=== PATIENT | male | born 1980 | race Two or more races ===

== ENCOUNTER 2017-02-16 16:16 | Emergency (ER) | payer BC ==
[~2017-02-16] VITALS: Ht 190.5 cm; Wt 104.3 kg
[2017-02-16 17:00] VITALS: BP 108/69
[2017-02-16 17:14] LABS: BASOPHILS % (AUTO) 0.5 % (0.0-2.0); EOSINOPHILS % (AUTO) 0.9 % (0.0-3.0); LYMPHOCYTES % (AUTO) 23.5 % (20.0-45.0); MEAN CORPUSCULAR HEMOGLOBIN 29.9 PG (27.0-31.0); MEAN CORPUSCULAR HGB CONC 34.2 G/DL (32.0-36.0); MEAN CORPUSCULAR VOLUME 88 FL (80-99); MEAN PLATELET VOLUME 7.7 FL (6.5-10.1); MONOCYTES % (AUTO) 5.6 % (1.0-10.0); NEUTROPHILS % (AUTO) 69.4 % (45.0-75.0); PLATELET COUNT 182 K/UL (150-450); RED BLOOD COUNT 5.45 M/UL (4.70-6.10); RED CELL DISTRIBUTION WIDTH 11.1 % (11.6-14.8); WHITE BLOOD COUNT 6.6 K/UL (4.8-10.8)
--- NOTE | 2017-02-16 17:20 | Diagnostic Imaging Report ---
Indication: PAIN Technique: One view of the chest Comparison: none Findings: Lungs and pleural spaces are clear. Heart size is normal. Impression: No acute process
[2017-02-16 17:27] LABS: ANION GAP 10 mmol/L (5-15); CALCIUM 8.8 MG/DL (8.5-10.1); CARBON DIOXIDE 28 MMOL/L (21-32); CHLORIDE 103 MMOL/L (98-107); CREATININE 1.1 MG/DL (0.55-1.30); GLOMERULAR FILTRATION RATE > 60 mL/min (>60); POTASSIUM 3.9 MMOL/L (3.5-5.1); SODIUM 141 MMOL/L (136-145)
[2017-02-16 17:41] LABS: ALANINE AMINOTRANSFERASE 43 U/L (12-78); ALBUMIN/GLOBULIN RATIO 1.3 (1.0-2.7); ASPARTATE AMINO TRANSFERASE 28 U/L (15-37); TOTAL PROTEIN 7.5 G/DL (6.4-8.2)
[2017-02-16 18:00] LABS: CRP QUANT < 0.4 mg/dL (0.00-0.90)
--- NOTE | 2017-02-16 18:43 | Emergency Room Report ---
History of Present Illness General Chief Complaint: Chest Pain Source: Patient (CHAI AGUERO) Present Illness HPI 37 y/o male c/o chest pain x 3 days. States he's had this pain for 1 year on and off and states it feels like its under his chest / ribs on the left side assoc w/ a mass. States he had an MRI of this mass on his chest 1 year ago which was negative. States that he told his PCP about his chest pain which is worse when he moves his neck to the left and feels like its reproducible but unable to palpate and reproduce it, only with movements. States he has no cardiac hx and denies any FH of heart attack or sudden before age 50. Denies taking medication for sxs. States PCP is asking we run EKG and cardiac enzymes as presented on a script from Dr. Kaleb Sanchez DO. Patient denies any SOB, ENRIQUE, rash, headache, blurred vision, left arm pain, jaw pain, nausea, ALOC , GERD, abd pain, back pain, or heart palpitations. (CHAI AGUERO) Allergies: Coded Allergies: No Known Allergies (Unverified , 02/16/17) Patient History Past Medical History: see triage record Past Surgical History: none Pertinent Family History: none Immunizations: UTD Reviewed Nursing Documentation: PMH: Agreed, PSxH: Agreed (CHAI AGUERO) Nursing Documentation-PMH Past Medical History: No Stated History (CHAI AGUERO.Latoya) Review of Systems All Other Systems: negative except mentioned in HPI (CHAI AGUERO) Physical Exam Vital Signs Date Time Temp Pulse Resp B/P (MAP) Pulse Ox O2 Delivery O2 Flow Rate FiO2 02/16/17 16:19 97.7 66 18 115/69 99 Room Air Sp02 EP Interpretation: reviewed, normal General Appearance: well appearing, no apparent distress, alert, GCS 15, non- toxic Head: normocephalic, atraumatic Eyes: bilateral eye normal inspection, bilateral eye PERRL ENT: hearing grossly normal, normal pharynx, no angioedema, normal voice Neck: full range of motion, supple/symm/no masses Respiratory: chest non-tender, lungs clear, normal breath sounds, speaking full sentences Cardiovascular #1: regular rate, rhythm, no edema, normal capillary refill Gastrointestinal: non tender, soft Musculoskeletal: back normal, gait/station normal, normal range of motion, non- tender, calf tenderness Neurologic: alert, oriented x3, responsive, motor strength/tone normal, sensory intact, speech normal Psychiatric: judgement/insight normal, memory normal, mood/affect normal, no suicidal/homicidal ideation Skin: normal color, no rash, warm/dry, well hydrated, other - 2cm soft mass LSB 4th ICS region Lymphatic: no adenopathy (CHAI AGUERO P.AOsvaldo) Medical Decision Making PA Attestation Dr. Pierre is my supervising physician with whom patient management has been discussed with. (CHAI AGUERO PLeonor) Diagnostic Impression: Primary Impression: Chest pain Qualified Codes: R07.82 - Intercostal pain ER Course Pt. presents to the ED c/o chest pain x 3 days Ddx considered but are not limited to MA, unstable angina, ACS, aortic dissection, costochondritis, PE, endocarditis Vital signs: are WNL, pt. is afebrile H&PE are most consistent with costochondritis ORDERS / ED INTERVENTIONS: My Orders - CHAI AGUERO P.AOsvaldo Procedure Category Date Status Time Vital Signs CARE 02/16/17 Transmitted 16:43 Ekg Tracing Only CARD 02/16/17 Logged 16:43 Cardiac Monitoring CARE 02/16/17 Transmitted 16:43 Oxygen (Er Only) CARE 02/16/17 Transmitted 16:43 Ed Pulse Oximetry CARE 02/16/17 Transmitted 16:43 Iv Access / Saline CARE 02/16/17 Transmitted Lock 16:43 Activity / Weight CARE 02/16/17 Transmitted Bearing 16:43 Cbc W/ Differential LAB 02/16/17 Complete 16:43 CK MB LAB 02/16/17 Complete 16:43 CK LAB 02/16/17 Complete 16:43 CMP LAB 02/16/17 Complete 16:43 Troponin I LAB 02/16/17 Complete 16:43 C-Reactive Protein LAB 02/16/17 Complete 16:43 D-Dimer LAB 02/16/17 Complete 16:43 Xray Chest 1v RAD 02/16/17 Resulted 16:43 Rhythm Strip CARE 02/16/17 Transmitted 16:43 Saline 10ml Flush PHA 02/16/17 Complete (Saline 10ml Flush) 16:45 DISCHARGE: At this time pt. is stable for d/c to home. Will provide printed patient care instructions, and any necessary prescriptions. Care plan and follow up instructions have been discussed with the patient prior to discharge. Laboratory Tests Test 02/16/17 16:35 White Blood Count 6.6 K/UL (4.8-10.8) Red Blood Count 5.45 M/UL (4.70-6.10) Hemoglobin 16.3 G/DL (14.2-18.0) Hematocrit 47.7 % (42.0-52.0) Mean Corpuscular Volume 88 FL (80-99) Mean Corpuscular Hemoglobin 29.9 PG (27.0-31.0) Mean Corpuscular Hemoglobin Concent 34.2 G/DL (32.0-36.0) Red Cell Distribution Width 11.1 % (11.6-14.8) L Platelet Count 182 K/UL (150-450) Mean Platelet Volume 7.7 FL (6.5-10.1) Neutrophils (%) (Auto) 69.4 % (45.0-75.0) Lymphocytes (%) (Auto) 23.5 % (20.0-45.0) Monocytes (%) (Auto) 5.6 % (1.0-10.0) Eosinophils (%) (Auto) 0.9 % (0.0-3.0) Basophils (%) (Auto) 0.5 % (0.0-2.0) D-Dimer 0.19 mg/L FEU (0.00-0.49) Sodium Level 141 MMOL/L (136-145) Potassium Level 3.9 MMOL/L (3.5-5.1) Chloride Level 103 MMOL/L (98-107) Carbon Dioxide Level 28 MMOL/L (21-32) Anion Gap 10 mmol/L (5-15) Blood Urea Nitrogen 15 mg/dL (7-18) Creatinine 1.1 MG/DL (0.55-1.30) Estimate Glomerular Filtration Rate > 60 mL/min (>60) Glucose Level 101 MG/DL (74-106) Calcium Level 8.8 MG/DL (8.5-10.1) Total Bilirubin 0.6 MG/DL (0.2-1.0) Aspartate Amino Transferase (AST) 28 U/L (15-37) Alanine Aminotransferase (ALT) 43 U/L (12-78) Alkaline Phosphatase 54 U/L (46-116) Total Creatine Kinase 49 U/L (26-308) Creatine Kinase MB 1.0 NG/ML (0.0-3.6) Creatine Kinase MB Relative Index 2.0 Troponin I 0.000 ng/mL (0.000-0.056) C-Reactive Protein, Quantitative < 0.4 mg/dL (0.00-0.90) Total Protein 7.5 G/DL (6.4-8.2) Albumin 4.2 G/DL (3.4-5.0) Globulin 3.3 g/dL Albumin/Globulin Ratio 1.3 (1.0-2.7) Lab Results Impression No acute abnormalities (CHAI AGUERO) ER Course Chest X-ray CXR: Ordered: Yes 1 view Indication: Chest pain EP interpretation: Yes Interpretation: No consolidation, no effusion, no PTX, no acute cardiopulmonary disease Impression: No acute disease Electronically signed by Dale Pierre MD (Dale Pierre M.D.) EKG Diagnostic Results EKG Time: 16:28 EP Interpretation: Sinus shea Rate: normal Rhythm: NSR ST Segments: no acute changes ASA given to the pt in ED: No (CHAI AGUREO) Last Vital Signs Date Time Temp Pulse Resp B/P (MAP) Pulse Ox O2 Delivery O2 Flow Rate FiO2 02/16/17 17:00 59 16 Room Air 02/16/17 17:00 99.0 108/69 96 Status: unchanged (CHAI AGUERO) Disposition: HOME, SELF-CARE Condition: Stable Scripts Naproxen* (NAPROXEN*) 500 Mg Tablet.dr 500 MG ORAL TWICE A DAY for 10 Days, #20 TAB Prov: CHAI AGUERO 02/16/17 Patient Instructions: Nonspecific Chest Pain Additional Instructions: Take medication as directed. Patient advised to follow up with PCP within 3-5 days. Patient is to return to the ER or call 911 if there is any shortness or breath, severe headaches, dyspnea on exertion or chest pain. CHAI AGUERO Feb 16, 2017 18:43 Dale Pierre M.D. Mar 01, 2017 21:45
[2017-02-16] MEDS ORDERED: NAPROXEN500 M1 ORAL (18:44)
[2017-02-16 18:55] VITALS: BP 113/73
--- NOTE | 2017-02-19 16:23 | Cardiology Report ---
APPROVED REPORT EKG Measurement Heart [id number] Sinus bradycardia Incomplete right bundle branch block Borderline ECG
== END 2017-02-16 18:55 | disposition home or self-care (01) ==
LOC: EMR 16:40
DX: R07.89 Other chest pain (principal); R22.2 Localized swelling, mass and lump, trunk
CPT/HCPCS: 36415; 71010; 80053; 82550; 82553; 84484; 85025; 85379; 86140; 93005; 99284